=== PATIENT | female | born 1995 | race Caucasian/White ===

== ENCOUNTER 2020-10-01 21:57 | Inpatient (IN) | payer MEDICAID ==
[~2020-10-01] VITALS: Ht 157.5 cm; Wt 86.2 kg
[2020-10-01] MEDS ORDERED: FERR-71 MT (23:06)
[2020-10-01] MEDS ORDERED: PNV1TABL50 MT (23:06)
[2020-10-01] MEDS ORDERED: MV-M1TAB19 PO (23:06)
[2020-10-02] MEDS ORDERED: LIDOCAINE HCL 1% 20ML VIAL (Pyxis) INJ INFIL SCH (04:45)
[2020-10-02] MEDS ORDERED: NALOXONE HCL 0.4 MG/ML 1ML VIAL IM PRN (04:45)
[2020-10-02] MEDS ORDERED: CARBOPROST TROMETHAMINE 250 MCG/ML AMPUL IM PRN (04:45)
[2020-10-02] MEDS ORDERED: METHYLERGONOVINE MALEATE 0.2 MG/ML IM PRN (04:45)
[2020-10-02] MEDS ORDERED: PENICILLIN G POTASSIUM 5 MMU in DEXT 5% WATER 100 ML IV SCH (05:00)
[2020-10-02 05:32] LABS: INR 0.9; PARTIAL THROMBOPLASTIN TIME 26.4 sec (23.4-31.0); PROTHROMBIN TIME 9.9 sec (9.6-11.0)
[2020-10-02 05:46] LABS: CLARITY URINE CLOUDY (CLEAR); COLOR URINE YELLOW (YELLOW); KETONES URINE TRACE (NEGATIVE); LEUKOCYTE ESTERASE URINE TRACE (NEGATIVE); NITRITE URINE NEGATIVE (NEGATIVE); OCCULT BLOOD URINE NEGATIVE (NEGATIVE); PH URINE 6.5 (4.5-8.0); PROTEIN URINE TRACE (NEGATIVE); SPECIFIC GRAVITY URINE 1.026 (1.005-1.030)
[2020-10-02 05:57] LABS: *AMPHETAMINES SCREEN URINE NEGATIVE (NEGATIVE); *BARBITURATES SCREEN URINE NEGATIVE (NEGATIVE); *BENZODIAZEPINES SCREEN URINE NEGATIVE (NEGATIVE); *COCAINE SCREEN URINE NEGATIVE (NEGATIVE); CANNABINOID URINE SCREEN NEGATIVE (NEGATIVE); METHADONE URINE SCREEN NEGATIVE (NEGATIVE); PHENCYCLIDINE URINE SCREEN NEGATIVE (NEGATIVE)
[2020-10-02 05:58] LABS: OPIATES URINE SCREEN NEGATIVE (NEGATIVE)
[2020-10-02 06:00] LABS: HEPATITIS B SURFACE ANTIGEN NEGATIVE
[2020-10-02] MEDS ORDERED: ROPIVACAINE HCL/PF EPIDURAL 200 ML EPI SCH (06:00)
[2020-10-02] MEDS: LACTATED RINGERS 1,000 ML IV SCH ×3 (07:41→16:26)
[2020-10-02] MEDS: BUTORPHANOL TARTRATE 2 MG/ML VIAL IV PRN ×2 (07:45→17:39)
[2020-10-02] MEDS ORDERED: PENICILLIN G POTASSIUM 2.5 MMU in DEXTROSE 5% WATER 50 ML IV SCH (09:00)
[2020-10-02] MEDS: DEXT 5%/LR + PITOCIN 20UNITS/L 1,000 ML IV SCH ×2 (15:25→23:24)
[2020-10-02 19:54] LABS: BASOPHILS % 0.4 % (0.0-2.0); EOSINOPHILS % 0.2 % (0.0-5.0); HEMATOCRIT. 35.6 % (36.0-48.0); HEMOGLOBIN. 12.1 g/dL (12.0-16.0); LYMPHOCYTES % 16.1 % (20.0-50.0); MEAN CORPUSCULAR HEMOGLOBIN 29.4 pg (28.0-32.0); MEAN CORPUSCULAR VOLUME 86.3 fL (81.0-99.0); MEAN PLATELET VOLUME 10.5 fl (7.4-10.4); MONOCYTES % 5.2 % (2.0-8.0); NEUTROPHILS % 78.1 % (40.0-76.0); PLATELET 216 x1000/uL (130-400); RED BLOOD CELL COUNT 4.12 mill/uL (4.2-5.4)
[2020-10-02] MEDS ORDERED: RHO(D) IMMUNE GLOBULIN 300 MCG/SYR IM PRN (21:45)
[2020-10-02] MEDS ORDERED: DEXT 5%/LR + PITOCIN 20UNITS/L 1,000 ML IV SCH (21:45)
[2020-10-02] MEDS ORDERED: IBUPROFEN 400MG TABLET PO PRN (21:45)
[2020-10-02 23:00] VITALS: BP 120/62
[2020-10-03] VITALS: BP 107/56
[2020-10-03] MEDS: IBUPROFEN 800MG TABLET PO PRN ×5 (00:04→21:52)
[2020-10-03 04:00] VITALS: BP 105/54
[2020-10-03] MEDS ORDERED: GLYCERIN/WITCH HAZEL LEAF MEDICATED PAD TOP PRN (07:15)
[2020-10-03] MEDS ORDERED: LANOLIN OINT 7GM TUBE TOP PRN (07:15)
[2020-10-03 07:16] LABS: BASOPHILS % 0.3 % (0.0-2.0); EOSINOPHILS % 0.7 % (0.0-5.0); HEMATOCRIT. 31.6 % (36.0-48.0); HEMOGLOBIN. 10.9 g/dL (12.0-16.0); LYMPHOCYTES % 18.3 % (20.0-50.0); MEAN CORPUSCULAR HEMOGLOBIN 29.7 pg (28.0-32.0); MEAN CORPUSCULAR VOLUME 86.3 fL (81.0-99.0); MONOCYTES % 6.9 % (2.0-8.0); NEUTROPHILS % 73.8 % (40.0-76.0); PLATELET 201 x1000/uL (130-400); RED BLOOD CELL COUNT 3.66 mill/uL (4.2-5.4); RED CELL DISTRIBUTION WIDTH 13.4 % (11.6-14.6)
[2020-10-03 08:30] VITALS: BP 100/48
[2020-10-03] MEDS: FERROUS SULFATE 325MG TABLET PO SCH ×3 (08:44→17:47)
[2020-10-03] MEDS: PRENATAL VIT/FE FUMARATE/FA TABLET PO SCH (08:45)
[2020-10-03 15:42] VITALS: BP 101/56
[2020-10-03 22:00] VITALS: BP 109/61
[2020-10-04 06:05] VITALS: BP 112/72
[2020-10-04] MEDS: FERROUS SULFATE 325MG TABLET PO SCH (08:54)
[2020-10-04] MEDS: PRENATAL VIT/FE FUMARATE/FA TABLET PO SCH (08:54)
[2020-10-04] MEDS: IBUPROFEN 800MG TABLET PO PRN (08:54)
[2020-10-04 09:00] VITALS: BP 111/72
== END 2020-10-04 14:00 | disposition home or self-care (01) | DRG 560 ==
LOC: 8 EST LDRP 21:57 → OBSVTOIN 21:57 → 8EST 10-02 23:06
PROVIDERS: ADMIT Obstetrics & Gynecology; ATTEND Obstetrics & Gynecology
PROC: 10E0XZZ Delivery of Products of Conception, External Approach (ICD-10-PCS; principal; 2020-10-02)
DX: O69.81X0 Labor and delivery complicated by cord around neck, without compression, not applicable or unspecified (principal); D62 Acute posthemorrhagic anemia; Z37.0 Single live birth; Z3A.39 39 weeks gestation of pregnancy; O90.81 Anemia of the puerperium
CPT/HCPCS: 36415; 76805; 76818; 80305; 81003; 85025; 86592; 86703; 86762; 86850; 86900; 87340; 99281; G0378; J0595; J2540; J2590; J7060; J7120